=== PATIENT | male | born 1970 | race Caucasian/White ===

== ENCOUNTER 2016-11-23 21:49 | Emergency (ER) | payer MEDICARE, MEDICAID ==
[~2016-11-23] VITALS: Ht 172.7 cm; Wt 113.4 kg
[2016-11-23 22:05] VITALS: BP 180/101
== END 2016-11-24 05:00 | disposition left against medical advice (07) ==
LOC: ER 21:59
DX: S99.922A Unspecified injury of left foot, initial encounter (principal); Z53.21 Procedure and treatment not carried out due to patient leaving prior to being seen by health care provider; X58.XXXA Exposure to other specified factors, initial encounter; Y93.89 Activity, other specified; Y99.8 Other external cause status; Y92.89 Other specified places as the place of occurrence of the external cause
CPT/HCPCS: 73630

== ENCOUNTER 2017-11-04 04:55 | Emergency (ER) | payer MEDICARE, MEDICAID ==
[~2017-11-04] VITALS: Ht 182.9 cm; Wt 108.9 kg
[2017-11-04] MEDS ORDERED: SODIUM CHLORIDE 0.9% 1,000 ML IV ONE (07:37)
[2017-11-04] MEDS ORDERED: KETOROLAC TROMETH 30 MG/ML 1ML VIAL IV ONE (07:45)
[2017-11-04] MEDS ORDERED: METOCLOPRAMIDE HCL 5MG/ml INJ 2ml VIAL IV ONE (07:45)
[2017-11-04] MEDS ORDERED: TETANUS-DIPTH-ACEL PERTUSSIS 0.5ML SYRG IM ONE (07:45)
[2017-11-04 08:09] LABS: Basophils # (auto) 0.1 uL; Eosinophils # (auto) 0.4 uL; Hemoglobin 12.3 g/dL (13.5-17.5); Lymphocytes # (auto) 1.3 uL; Monocytes # (auto) 0.5 uL; Nucleated Red Blood Cells % 0.1 %
[2017-11-04 08:10] LABS: Basophils % (auto) 0.9 % (0.0-2.0); Eosinophils % (auto) 4.1 % (0.0-7.0); Hematocrit 39.1 % (41.0-53.0); Lymphocytes % (auto) 14.8 % (10.0-50.0); Mean Corpuscular Hgb Conc. 31.5 g/dL (32.0-36.0); Monocytes % (auto) 5.5 % (0.0-12.0); Neutrophils # (auto) 6.5 uL; Neutrophils % (auto) 74.7 % (37.0-80.0); Platelet Count (auto) 225 10^3/uL (140-450); Red Blood Cells 5.15 10^6/uL (4.5-5.90); Red Cell Distribution Width 17.8 % (11.8-14.3); White Blood Cell 8.7 10^3/uL (4.4-10.8)
[2017-11-04 08:24] LABS: Bilirubin, Total 0.4 mg/dL (0.2-1.0); Calcium 8.2 mg/dL (8.5-10.1); Magnesium 2.6 mg/dL (1.6-2.6); Potassium 3.6 mmol/L (3.5-5.1)
[2017-11-04 08:46] LABS: Mean Corpuscular Hemoglobin 24.3 pg (28.0-32.0)
[2017-11-04 12:05] VITALS: BP 141/99
[2017-11-04 13:53] LABS: Urine Bacteria NONE SEEN /hpf (None Seen); Urine Blood Negative /uL (Negative); Urine Mucus FEW (None Seen); Urine Specific Gravity 1.022 (1.001-1.035); Urine WBC 1 /hpf (0 - 3)
== END 2017-11-04 12:34 | disposition home or self-care (01) ==
LOC: EDBD 04:55 → ER 05:00
DX: S22.31XA Fracture of one rib, right side, initial encounter for closed fracture (principal); S27.9XXA Injury of unspecified intrathoracic organ, initial encounter; M62.838 Other muscle spasm; E44.0 Moderate protein-calorie malnutrition; Z68.32 Body mass index [BMI] 32.0-32.9, adult; Z85.118 Personal history of other malignant neoplasm of bronchus and lung; V43.52XA Car driver injured in collision with other type car in traffic accident, initial encounter; Y93.89 Activity, other specified; Y92.488 Other paved roadways as the place of occurrence of the external cause; Y99.8 Other external cause status
CPT/HCPCS: 36415; 70450; 71250; 72125; 80053; 81001; 83735; 85025; 93005; 96374; 96375; 99285; J1885; J2765; J7030; 90715

== ENCOUNTER 2017-12-30 04:39 | Emergency (ER) | payer MEDICARE, MEDICAID ==
[~2017-12-30] VITALS: Ht 172.7 cm; Wt 104.3 kg
[2017-12-30] MEDS ORDERED: cloNIDine HCL 0.1 MG TAB ONE (05:22)
[2017-12-30] MEDS ORDERED: cloNIDine HCL 0.1 MG TAB PO ONE (05:30)
[2017-12-30 05:47] LABS: Urine Bacteria NONE SEEN /hpf (None Seen); Urine Blood 1+ /uL (Negative); Urine Mucus FEW (None Seen); Urine Specific Gravity 1.019 (1.001-1.035); Urine WBC 2 /hpf (0 - 3)
[2017-12-30 06:28] VITALS: BP 157/92
[2017-12-30] MEDS ORDERED: SODIUM CHLORIDE 0.9% 1,000 ML IVB ONE (07:55)
[2017-12-30] MEDS ORDERED: TAMSULOSIN HYDROCHLORIDE 0.4 MG CAP PO ONE (08:00)
[2017-12-30] MEDS ORDERED: ACETAMINOPHEN 500 MG TAB PO ONE (08:30)
[2017-12-30 08:34] LABS: Basophils # (auto) 0.1 uL; Eosinophils # (auto) 0.2 uL; Monocytes # (auto) 0.6 uL; Neutrophils # (auto) 4.3 uL; Nucleated Red Blood Cells % 0.1 %
[2017-12-30 08:36] LABS: Basophils % (auto) 1.3 % (0.0-2.0); Eosinophils % (auto) 2.9 % (0.0-7.0); Hematocrit 33.4 % (41.0-53.0); Hemoglobin 10.4 g/dL (13.5-17.5); Lymphocytes # (auto) 1.6 uL; Mean Corpuscular Hemoglobin 23.8 pg (28.0-32.0); Mean Corpuscular Hgb Conc. 31.2 g/dL (32.0-36.0); Mean Corpuscular Volume 76.4 fL (80.0-100.0); Monocytes % (auto) 8.5 % (0.0-12.0); Neutrophils % (auto) 63.3 % (37.0-80.0); Platelet Count (auto) 256 10^3/uL (140-450); Red Blood Cells 4.38 10^6/uL (4.5-5.90); Red Cell Distribution Width 19.4 % (11.8-14.3); White Blood Cell 6.7 10^3/uL (4.4-10.8)
[2017-12-30 08:50] LABS: Albumin 3.1 g/dL (3.4-5.0); BUN/Creatinine Ratio 10.2; Bilirubin, Total 0.2 mg/dL (0.2-1.0); Calcium 8.3 mg/dL (8.5-10.1); Magnesium 1.9 mg/dL (1.6-2.6); Potassium 3.5 mmol/L (3.5-5.1); Total Protein 7.1 g/dL (6.4-8.2)
== END 2017-12-30 09:55 | disposition left against medical advice (07) ==
LOC: ER 04:41
DX: N40.1 Benign prostatic hyperplasia with lower urinary tract symptoms (principal); R33.8 Other retention of urine; E44.1 Mild protein-calorie malnutrition; D50.9 Iron deficiency anemia, unspecified; I10 Essential (primary) hypertension; Z68.35 Body mass index [BMI] 35.0-35.9, adult
CPT/HCPCS: 36415; 71046; 74176; 80053; 81001; 83690; 83735; 85025; 99285; J7030

== ENCOUNTER 2018-03-30 17:55 | Emergency (ER) | payer MEDICARE, OTHER ==
[~2018-03-30] VITALS: Ht 172.7 cm; Wt 95.3 kg
[2018-03-30 18:04] VITALS: BP 178/124
[2018-03-30] MEDS ORDERED: cloNIDine HCL 0.1 MG TAB PO ONE (18:30)
== END 2018-03-30 18:42 | disposition left against medical advice (07) ==
LOC: ER 18:15
DX: I10 Essential (primary) hypertension (principal)

== ENCOUNTER 2018-04-05 09:22 | Emergency (ER) | payer MEDICARE, MEDICAID ==
[~2018-04-05] VITALS: Ht 172.7 cm; Wt 95.3 kg
[2018-04-05] MEDS ORDERED: LIDOCAINE 2% JELLY 11ml (GLYDO) UR ONE (10:00)
[2018-04-05] MEDS ORDERED: cloNIDine HCL 0.1 MG TAB PO ONE (10:15)
[2018-04-05 10:24] LABS: Urine WBC None Seen /hpf (0 - 3)
[2018-04-05] MEDS ORDERED: cefTRIAXone 1GM/50ML D5W 50 ML IV ONE (10:30)
[2018-04-05] MEDS ORDERED: CIPROFLOXACIN HCL 500 MG TAB PO ONE (10:30)
[2018-04-05 10:49] LABS: Urine Bacteria NONE SEEN /hpf (None Seen); Urine Blood 1+ /uL (Negative); Urine Specific Gravity 1.019 (1.001-1.035)
[2018-04-05 11:06] VITALS: BP 123/88
[2018-04-05 11:07] LABS: Albumin 3.2 g/dL (3.4-5.0); Calcium 8.7 mg/dL (8.5-10.1); Potassium 3.7 mmol/L (3.5-5.1)
[2018-04-05 11:10] LABS: Bilirubin, Total 0.2 mg/dL (0.2-1.0); Total Protein 7.2 g/dL (6.4-8.2)
[2018-04-05] MEDS ORDERED: LORazepam 0.5 MG TAB PO ONE (11:30)
[2018-04-05 11:38] LABS: Hemoglobin 13.4 g/dL (13.5-17.5); Monocytes # (auto) 0.7 uL; Neutrophils # (auto) 7.9 uL
[2018-04-05 11:39] LABS: Basophils # (auto) 0.1 uL; Basophils % (auto) 0.8 % (0.0-2.0); Eosinophils # (auto) 0.2 uL; Eosinophils % (auto) 1.7 % (0.0-7.0); Hematocrit 42.3 % (41.0-53.0); Lymphocytes # (auto) 1.7 uL; Lymphocytes % (auto) 15.7 % (10.0-50.0); Mean Corpuscular Hemoglobin 23.9 pg (28.0-32.0); Mean Corpuscular Hgb Conc. 31.6 g/dL (32.0-36.0); Mean Corpuscular Volume 75.7 fL (80.0-100.0); Monocytes % (auto) 6.6 % (0.0-12.0); Neutrophils % (auto) 75.2 % (37.0-80.0); Platelet Count (auto) 298 10^3/uL (140-450); Red Blood Cells 5.58 10^6/uL (4.5-5.90); Red Cell Distribution Width 17.6 % (11.8-14.3); White Blood Cell 10.6 10^3/uL (4.4-10.8)
[2018-04-05] MEDS ORDERED: HYDROcodone-ACET 10/325MG TAB PO ONE (11:45)
== END 2018-04-05 12:09 | disposition home or self-care (01) ==
LOC: ER 09:22
DX: N39.0 Urinary tract infection, site not specified (principal); I10 Essential (primary) hypertension; Z85.118 Personal history of other malignant neoplasm of bronchus and lung
CPT/HCPCS: 36415; 51702; 80053; 81001; 85025

== ENCOUNTER 2019-01-15 04:40 | Emergency (ER) | payer MEDICARE, MEDICAID ==
[~2019-01-15] VITALS: Ht 172.7 cm; Wt 98.1 kg
[2019-01-15 05:02] VITALS: BP 171/108
== END 2019-01-15 08:28 | disposition home or self-care (01) ==
LOC: ER 04:40
DX: L08.9 Local infection of the skin and subcutaneous tissue, unspecified (principal); M79.645 Pain in left finger(s); I10 Essential (primary) hypertension

== ENCOUNTER 2020-01-16 01:16 | Emergency (ER) | payer BC, MEDICAID, MEDICARE ==
[~2020-01-16] VITALS: Ht 172.7 cm; Wt 95.7 kg
[2020-01-16 02:10] VITALS: BP 128/74
[2020-01-16] MEDS ORDERED: AZITHROMYCIN 250 MG TAB PO ONE (02:30)
[2020-01-16] MEDS ORDERED: KETOROLAC TROMETH 60MG/2ML VIAL IM ONE (02:30)
[2020-01-16] MEDS ORDERED: cefTRIAXone SOD 1,000 MG VL IM ONE (02:30)
== END 2020-01-16 03:01 | disposition home or self-care (01) ==
LOC: ER 01:17
DX: H10.33 Unspecified acute conjunctivitis, bilateral (principal)
CPT/HCPCS: 96372; 99284; J0696; J1885